=== PATIENT | male | born 1975 | race Caucasian/White ===

== ENCOUNTER 2018-03-29 09:42 | Emergency (ER) | payer SELFPAY ==
--- NOTE | 2018-03-29 10:20 | EDM.PDOC ---
ED HPI GENERAL MEDICAL PROBLEM - General Chief Complaint: General Stated Complaint: SYNCOPE Time Seen by Provider: 03/29/18 10:03 Source of Information: Reports: Patient History Limitations: Reports: No Limitations - History of Present Illness INITIAL COMMENTS - FREE TEXT/NARRATIVE: The patient states that he developed lightheadedness, nausea with 2 episodes of emesis, generalized fatigue, and a headache yesterday, , 03/28/2018. He states that he drank a lot of electrolyte fluid yesterday, but this morning he still felt the same, therefore his made him come to the ED for evaluation. No recent fever, constipation, diarrhea, or urinary symptoms. The patient denies recent nasal or sinus congestion or pressure. No prior similar symptoms. The patient does not have a PCP. Headache Pain Score (Numeric/FACES): 3 - Related Data Allergies Allergy/AdvReac Type Severity Reaction Status Date / Time No Known Allergies Allergy Verified 03/29/18 09:50 Home Meds: Home Meds . [No Known Home Meds] 03/29/18 [History] Past Medical History - Past Surgical History HEENT Surgical History: Reports: Oral Surgery (Black teeth extraction) GI Surgical History: Reports: Appendectomy (at 26 years old), Other (See Below) (Traumatic splenectomy at 9 years old) Social & Family History - Family History Family Medical History: Noncontributory - Tobacco Use Smoking Status *Q: Never Smoker - Caffeine Use Caffeine Use: Reports: Coffee - Alcohol Use Alcohol Use History: Yes Alcohol Use Frequency: Socially - Recreational Drug Use Recreational Drug Use: No - Living Situation & Occupation Living situation: Reports: , with Spouse, with Family (1 daughter) 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 ED EXAM, GENERAL - Physical Exam Exam: See Below Exam Limited By: No Limitations General Appearance: Alert, WD/WN, No Apparent Distress Eye Exam: Bilateral Eye: Normal Inspection Ears: Normal External Exam, Hearing Grossly Normal Nose: Normal Inspection, No Blood Throat/Mouth: Normal Inspection, Normal Lips, Normal Voice, No Airway Compromise Head: Atraumatic, Normocephalic Neck: Normal Inspection, Full Range of Motion Respiratory/Chest: No Respiratory Distress, Lungs Clear, Normal Breath Sounds, No Accessory Muscle Use Cardiovascular: Normal Peripheral Pulses, Regular Rate, Rhythm, No Edema, No Gallop, No JVD, No Murmur, No Rub Peripheral Pulses: 4+: Radial (L), Radial (R) GI/Abdominal: Normal Bowel Sounds, Soft, Non-Tender, No Organomegaly, No Distention, No Abnormal Bruit, No Mass (Male) Exam: Deferred Rectal (Males) Exam: Deferred Back Exam: Normal Inspection, Full Range of Motion. No: CVA Tenderness (L), CVA Tenderness (R) Extremities: Normal Inspection, Normal Range of Motion, No Pedal Edema, Normal Capillary Refill Neurological: Alert, Oriented, Normal Cognition, No Motor/Sensory Deficits Psychiatric: Normal Affect Skin Exam: Warm, Dry, Intact, Normal Color, No Rash EKG INTERPRETATION EKG Date: 03/29/18 Time: 10:23 Rhythm: NSR Rate (Beats/Min): 65 [place]: Normal P-Wave: Present QRS: Normal ST-T: Normal QT: Normal Comparison: NA - No Prior EKG Course - Vital Signs Last Recorded V/S: Last Vital Signs Temp 36.7 C 03/29/18 09:51 Pulse 75 03/29/18 09:51 Resp 16 03/29/18 09:51 BP 142/97 H 03/29/18 09:51 Pulse Ox 98 03/29/18 09:51 Orthostatic Blood Pressure [ 136/85 Standing] Orthostatic Blood Pressure [ 121/79 Supine] - Orders/Labs/Meds Orders: Active Orders 24 hr Category Date Time Status EKG Documentation Completion [RC] STAT Care 03/29/18 10:14 Active Orthostatic Vital Signs [RC] STAT Care 03/29/18 10:05 Active Labs: Laboratory Tests 03/29/18 03/29/18 03/29/18 Range/Units 10:35 10:35 10:35 WBC 5.89 (4.23-9.07) K/mm3 RBC 4.96 (4.63-6.08) M/mm3 Hgb 15.1 (13.7-17.5) gm/L Hct 44.8 (40.1-51.0) % MCV 90.3 (79.0-92.2) fl MCH 30.4 (25.7-32.2) pg MCHC 33.7 (32.2-35.5) g/dl RDW Std Deviation 45.6 H (35.1-43.9) fL Plt Count 448 H (163-337) K/mm3 MPV 9.8 (9.4-12.3) fl Neutrophils % (Manual) 72 H (40-60) % Band Neutrophils % 1 (0-10) % Lymphocytes % (Manual) 18 L (20-40) % Atypical Lymphs % 0 % Monocytes % (Manual) 6 (2-10) % Eosinophils % (Manual) 2 (0.8-7.0) % Basophils % (Manual) 1 (0.2-1.2) Platelet Estimate Adequate RBC Morph Comment Normal D-Dimer, Quantitative < 0.19 L (0.19-0.50) mg/L Sodium 138 (136-145) mEq/L Potassium 4.2 (3.5-5.1) mEq/L Chloride 104 (98-107) mEq/L Carbon Dioxide 27 (21-32) mEq/L Anion Gap 11.2 (5-15) BUN 13 (7-18) mg/dL Creatinine 0.9 (0.7-1.3) mg/dL Est Cr Clr Drug Dosing 97.93 mL/min Estimated GFR (MDRD) > 60 (>60) mL/min BUN/Creatinine Ratio 14.4 (14-18) Glucose 104 (74-106) mg/dL Calcium 9.0 (8.5-10.1) mg/dL Total Bilirubin 0.5 (0.2-1.0) mg/dL AST 19 (15-37) U/L ALT 20 (16-63) U/L Alkaline Phosphatase 67 (46-116) U/L Troponin I < 0.017 (0.00-0.056) ng/mL Total Protein 7.8 (6.4-8.2) g/dl Albumin 3.5 (3.4-5.0) g/dl Globulin 4.3 gm/dL Albumin/Globulin Ratio 0.8 L (1-2) - Re-Assessments/Exams Free Text/Narrative Re-Assessment/Exam: 03/29/18 10:20 The patient is not orthostatic. 03/29/18 12:40 Test results discussed with the patient. Today's workup is entirely unremarkable , and does not explain the cause of the patient's symptoms, although I suspect that he may have a viral illness. No specific treatment is required. I will refer the patient to Dr. Colindres as a PCP. Departure - Departure Time of Disposition: 12:41 Disposition: Home, Self-Care 01 Condition: Good Clinical Impression: Malaise - Discharge Information Referrals: PCP,None [Primary Care Provider] - Tahira Colindres MD [Physician] - Forms: ED Department Discharge Additional Instructions: You were seen in the emergency room for feeling lightheaded, nauseated with vomiting, fatigue, and headache. Workup in the ER included blood work, positional blood pressure checks, and an ECG. Your entire workup was unremarkable. You are not anemic. There is no sign that you have an infection. Your not dehydrated. Your electrolyte are normal. Your blood sugar was normal. Your kidney function and liver function were normal. You have not had a heart attack. You do not have a blood clot in your lungs. The cause of your symptoms is unclear, but does not appear to be anything serious. You may be fighting a virus. Follow-up with Dr. Tahira Colindres, as a PCP, as needed. If any other problems, please do not hesitate to return to the ER. - My Orders Last 24 Hours: My Active Orders 03/29/18 10:05 Orthostatic Vital Signs [RC] STAT 03/29/18 10:14 EKG Documentation Completion [RC] STAT - Assessment/Plan Last 24 Hours: My Active Orders 03/29/18 10:05 Orthostatic Vital Signs [RC] STAT 03/29/18 10:14 EKG Documentation Completion [RC] STAT
== END 2018-03-29 12:43 | disposition home or self-care (01) ==
LOC: JD.ED 09:42
DX: R53.81 Other malaise (principal)
CPT/HCPCS: 36415; 80053; 84484; 85007; 85027; 85379; 93005; 93010; 99283-25; 99284-25

== ENCOUNTER 2019-09-28 16:44 | Emergency (ER) | payer SELFPAY ==
--- NOTE | 2019-09-28 17:09 | EDM.PDOC ---
ED HPI GENERAL MEDICAL PROBLEM - General Chief Complaint: Upper Extremity Injury/Pain Stated Complaint: R SHOULDER INURY Time Seen by Provider: 09/28/19 16:52 Source of Information: Reports: Patient History Limitations: Reports: No Limitations - History of Present Illness INITIAL COMMENTS - FREE TEXT/NARRATIVE: Patient is an unfortunate 44-year-old male presents emergency Department today with complaint of right shoulder pain. Patient reports normal state of health approximately 20 minutes prior to arrival when he was and was using a bar to pry a tire off of a rim and the bar slipped which cause his shoulder to "wrench" he has had pain to the anterior surface of his shoulder since. Pain is worse with range of motion or palpation improves with rest does not alleviate. Distal neurovascular is intact Treatments LAYOUT FORMER: Reports: Acetaminophen Right Shoulder Pain Score (Numeric/FACES): 3 - Related Data Allergies Allergy/AdvReac Type Severity Reaction Status Date / Time No Known Allergies Allergy Verified 09/28/19 16:57 Home Meds: Home Meds . 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) Review of Systems - Review of Systems Review Of Systems: See Below Constitutional: Denies: Chills, Fever Musculoskeletal: Reports: Joint Pain ED EXAM, GENERAL - Physical Exam Exam: See Below Exam Limited By: No Limitations General Appearance: Alert, WD/WN, Mild Distress Ears: Normal External Exam, Normal Canal, Hearing Grossly Normal, Normal TMs Nose: Normal Inspection, Normal Mucosa, No Blood Neck: Normal Inspection, Supple, Non-Tender, Full Range of Motion Respiratory/Chest: No Respiratory Distress, Lungs Clear, Normal Breath Sounds, No Accessory Muscle Use, Chest Non-Tender Cardiovascular: Normal Peripheral Pulses, Regular Rate, Rhythm, No Edema, No Gallop, No JVD, No Murmur, No Rub GI/Abdominal: Normal Bowel Sounds, Soft, Non-Tender, No Organomegaly, No Distention, No Abnormal Bruit, No Mass Back Exam: Normal Inspection, Full Range of Motion, NT Extremities: Other ([place] her right anterior shoulder and right lateral shoulder into deltoid pain is worse with palpation improves with rest no swelling no ecchymosis noted) Neurological: Alert Skin Exam: Warm, Dry, Intact, Normal Color, No Rash Course - Vital Signs Last Recorded V/S: Last Vital Signs Temp 98.0 F 09/28/19 16:52 Pulse 69 09/28/19 16:52 Resp 16 09/28/19 16:52 BP 160/94 H 09/28/19 16:52 Pulse Ox 98 09/28/19 16:52 - Orders/Labs/Meds Orders: Active Orders 24 hr Category Date Time Status Shoulder Comp Rt [CR] Stat Exams 09/28/19 16:56 Taken - Re-Assessments/Exams Free Text/Narrative Re-Assessment/Exam: 09/28/19 17:25 Right shoulder interpreted by me NAD Departure - Departure Time of Disposition: 17:25 Disposition: Home, Self-Care 01 Clinical Impression: Sprain of shoulder, right Qualifiers: Encounter type: initial encounter Shoulder sprain type: unspecified sprain Qualified Code(s): S43.401A - Unspecified sprain of right shoulder joint, initial encounter - Discharge Information Instructions: Shoulder Pain, [id number] Referrals: PCP,None [Primary Care Provider] - Tab Daigle MD [Physician] - Forms: ED Department Discharge Additional Instructions: Home, rest, ice, wear sling, Tylenol as needed for pain, return as needed for worsening condition Sepsis Event Note - Evaluation Sepsis Screening Result: No Definite Risk - Focused Exam Vital Signs: Vital Signs Temp Pulse Resp BP Pulse Ox 09/28/19 16:52 98.0 F 69 16 160/94 H 98 Date Exam was Performed: 09/28/19 Time Exam was Performed: 17:25 - My Orders Last 24 Hours: My Active Orders 09/28/19 16:56 Shoulder Comp Rt [CR] Stat - Assessment/Plan Last 24 Hours: My Active Orders 09/28/19 16:56 Shoulder Comp Rt [CR] Stat
--- NOTE | 2019-09-29 09:18 | CR ---
Right shoulder: Three views of the right shoulder were obtained. Comparison: No previous shoulder study. Slight spurring off the glenoid is noted. Acromioclavicular joint appears within normal limits. No fracture, dislocation or other bony abnormality is seen. No abnormal soft tissue calcifications are seen. Impression: 1. Spurring off the glenoid. 2. Right shoulder study is otherwise unremarkable. Diagnostic code #2 This report was dictated in [place] Standard Time
== END 2019-09-28 17:46 | disposition home or self-care (01) ==
LOC: JD.ED 16:44
DX: S43.401A Unspecified sprain of right shoulder joint, initial encounter (principal); X50.9XXA Other and unspecified overexertion or strenuous movements or postures, initial encounter; Y93.89 Activity, other specified; Y99.0 Civilian activity done for income or pay
CPT/HCPCS: 73030-26-RT; 73030-RT; 99282; 99283-25